=== PATIENT | female | born 1965 | race Caucasian/White ===

== ENCOUNTER 2016-12-01 07:38 | Emergency (ER) | payer OTHER ==
[~2016-12-01] VITALS: Ht 170.2 cm; Wt 72.6 kg
--- NOTE | 2016-12-01 07:55 | NUR ---
BIB - SENT BY MD FOR MRI R/O CAUDA EQUINA C/O LOWER BACK PAIN RADIATES TO R LEG X 3 WEEKS, WORSE LAST 2 DAYS. NAD NOTED, VSS, RESP EVEN AND UNLABORED. MD AT BEDSIDE FOR EVAL
--- NOTE | 2016-12-01 08:03 | NUR ---
URINE OBTAINED AND SENT TO LAB.
[2016-12-01 08:24] LABS: APPEARANCE,URINE CLEAR (CLEAR); BILIRUBIN,URINE NEGATIVE (NEGATIVE); BLOOD, URINE 1+ Ery/uL (NEGATIVE); COLOR,URINE YELLOW (YELLOW); KETONES,URINE NEGATIVE (NEGATIVE); LEUKOCYTE ESTERASE ,URINE 3+ (NEGATIVE); NITRITE, URINE NEGATIVE (NEGATIVE); PH,URINE 6.5 (5.0-8.0); PROTEIN,URINE NEGATIVE (NEGATIVE); UGLUCOSE NEGATIVE (NEGATIVE); UROBILINOGEN,URINE 0.2 EU/dL (0.2)
[2016-12-01 08:34] LABS: BACTERIA,URINE Rare /HPF (None Seen); SQUAMOUS EPITHELIAL CELL,UR Few /HPF (None Seen)
[2016-12-01 08:49] VITALS: BP 118/62
--- NOTE | 2016-12-01 08:54 | NUR ---
Patient discharged to home in stable condition. Written and verbal after care instructions given. Patient verbalizes understanding of instruction.
== END 2016-12-01 08:54 | disposition home or self-care (01) ==
LOC: ER 07:42
DX: M54.40 Lumbago with sciatica, unspecified side (principal); N39.0 Urinary tract infection, site not specified
CPT/HCPCS: 81001; 87077; 87086; 87186; 99284; A4606; Z7610; 81000-TC

== ENCOUNTER 2017-04-15 11:51 | Emergency (ER) | payer OTHER ==
[~2017-04-15] VITALS: Ht 170.2 cm; Wt 64.4 kg
--- NOTE | 2017-04-15 12:00 | NUR ---
AAOX3, BIB DAUGHTER C/O DIZZINESS X SUNDAY. RR IS EVEN AND UNLABORED WITH NAD NOTED. BILATERAL UPPER EXTREMITIES STRONG AND EQUAL. FACE SYMMETRICAL. NO NEURO DEFICIT. AWAITING MD FOR EVAL.
[2017-04-15] MEDS ORDERED: IV NS 0.9% 1,000 ML BAG IV ONE (12:30)
[2017-04-15] MEDS ORDERED: ONDANSETRON HCL/PF 4 MG/2 ML VIAL IVP ONE (12:30)
[2017-04-15] MEDS ORDERED: ONDANSETRON HCL/PF 4 MG/2 ML VIAL ONE (12:31)
[2017-04-15 12:32] LABS: BASOPHILS % (AUTO) 0.6 % (0.0-2.0); EOSINOPHILS # (AUTO) 0.1 /CMM (0.0-0.7); HEMATOCRIT 42 % (33-45); HEMOGLOBIN 14.4 g/dL (11.5-14.8); LYMPHOCYTES # (AUTO) 1.5 /CMM (0.8-4.8); LYMPHOCYTES % (AUTO) 21.9 % (20.0-44.0); MEAN CORPUSCULAR HEMOGLOBIN 29 PG (26.0-33.0); MEAN CORPUSCULAR HGB CONC 34 g/dl (31.0-36.0); MEAN CORPUSCULAR VOLUME 86 fL (82-100); MONOCYTES # (AUTO) 0.4 /CMM (0.1-1.30); MONOCYTES % (AUTO) 6.5 % (2.0-12.0); NEUTROPHILS # (AUTO) 4.7 /CMM (1.8-8.9); PLATELET COUNT (AUTO) 281 /CMM (150-450); RDW COEFFICIENT OF VARIATION 11.4 (11.5-15.0); RED BLOOD CELL COUNT(AUTO) 4.93 MIL/uL (4.0-5.2); WHITE BLOOD COUNT (AUTO) 6.7 K/uL (4.3-11.0)
[2017-04-15 12:41] LABS: CALCIUM, SERUM 9.1 mg/dL (8.5-10.1); CARBON DIOXIDE 29 mmol/L (21-32); CHLORIDE 104 mmol/L (98-107); CREATININE 0.7 mg/dL (0.6-1.3); GLUCOSE 98 mg/dL (74-106); POTASSIUM 3.7 mmol/L (3.5-5.1); SODIUM SERUM 138 mmol/L (136-145); UREA NITROGEN, BLOOD 12 mg/dL (7-18)
[2017-04-15 12:46] LABS: ALANINE AMINOTRANSFERASE 22 U/L (12-78); ALBUMIN 3.6 g/dL (3.4-5.0); ALKALINE PHOSPHATASE 69 U/L (46-116); ASPARTATE AMINOTRANSFERASE 22 U/L (15-37); BILIRUBIN,DIRECT 0.1 mg/dL (0.0-0.2); BILIRUBIN,TOTAL 0.2 mg/dL (0.2-1.0); TOTAL PROTEIN, SERUM 7.6 g/dL (6.4-8.2)
[2017-04-15 12:49] LABS: TROPONIN I < 0.017 ng/mL (0.00-0.056)
[2017-04-15 12:57] LABS: INR 1.02 (0.85-1.15)
--- NOTE | 2017-04-15 13:54 | NUR ---
IV removed. Catheter intact and site benign. Pressure and 4x4 applied to site. No bleeding noted.Patient discharged to home in stable condition. Written and verbal after care instructions given. Patient verbalizes understanding of instruction.
[2017-04-15 13:57] VITALS: BP 118/74
== END 2017-04-15 13:58 | disposition home or self-care (01) ==
LOC: ER 11:52
DX: R42 Dizziness and giddiness (principal); R11.0 Nausea; Z88.1 Allergy status to other antibiotic agents
CPT/HCPCS: 36415; 70450; 71045; 80048; 80076; 84484; 85025; 85730; 93005; 96361; 96374; 99285; A4606; J2405; J7030; Z7610